=== PATIENT | male | born 1945 | race Caucasian/White ===

== ENCOUNTER 2022-02-10 18:22 | Emergency (ER) | payer MEDICARE, SELFPAY ==
--- NOTE | ~2022-02-10 | XR_ITS ---
EXAMINATION: XR ankle RT min 3V DATE: 02/10/2022 18:43 INDICATION: Right ankle pain and swelling. TECHNIQUE: 4 views of right ankle were obtained. COMPARISON: None. FINDINGS: Bone alignment is normal. No fracture. There is moderate midfoot osteoarthritis. There is a n enthesophyte at plantar aspect of calcaneal tuberosity. There is severely diseased edema in the low er limb. IMPRESSION: 1. Moderate midfoot osteoarthritis. Reviewed, dictated and finalized at location A.
[2022-02-10 18:26] VITALS: BP 148/65; PULSE 90; RESP 20; TEMP 36.7; O2SAT 98
[2022-02-10 19:31] LABS: Basophils Percent Auto 0.3 % (0.2-1.2); Eosinophils Absolute Auto 0.2 K/mm3 (0-0.3); Eosinophils Percent Auto 1.7 % (0-4.4); Hematocrit 37.6 % (42.0-52.0); Hemoglobin 12.3 g/dL (14.0-18.0); Immature Granulocyte Absolute 0.02 K/mm3 (0.00-0.031); Immature Granulocyte Percent A 0.2 % (0-0.5); Lymphocytes Absolute Auto 1.26 K/mm3 (0.9-3.2); Lymphocytes Percent Auto 13.5 % (18.3-44.2); Mean Corpuscular HGB Conc 32.7 g/dl (32-36); Mean Corpuscular Hemoglobin 29.1 pg (26-34); Mean Corpuscular Volume 88.9 fl (80-100); Mean Platelet Volume 10.4 fl (7.4-10.4); Monocytes Absolute Auto 0.6 K/mm3 (0.1-0.6); Monocytes Percent Auto 6.9 % (2.6-8.5); Neutrophils Absolute Auto 7.2 K/mm3 (1.3-6.7); Neutrophils Percent Auto 77.4 % (45.5-73.1); Platelet Count Result 279 k/mm3 (150-375); Red Blood Count 4.23 M/mm3 (4.6-6.20); Red Cell Distribution Width 14.8 % (11.5-14.5); White Blood Count 9.3 K/mm3 (4.5-10.0)
[2022-02-10 19:37] LABS: INR 1.3; Prothrombin Time 15.7 Seconds (11.1-14.7)
[2022-02-10 19:38] LABS: Partial Thromboplastin Time 37.6 SECONDS (22.3-36.8)
[2022-02-10 19:46] LABS: Alanine Aminotransferase 31 U/L (6-50); Alkaline Phosphatase 66 U/L (38-126); Anion Gap 11 mmol/L (8-16); Aspartate Amino Transferase 34 U/L (17-59); Bilirubin,Total 0.7 mg/dL (0.2-1.3); Blood Urea Nitrogen 22 mg/dL (9-20); Calcium 8.9 mg/dL (8.4-10.2); Carbon Dioxide 26 mmol/L (22-30); Chloride 102 mmol/L (98-107); Estimated CRCL calculation 69 ml/min; Estimated Glomerular Filt Rate 59; Glucose 110 mg/dL (65-110); Potassium 3.6 mmol/L (3.4-5.0); Sodium 139 mmol/L (137-145); Uric Acid 8.6 mg/dL (3.5-8.5)
--- NOTE | 2022-02-10 20:52 | ED.GENADULT ---
HPI - General Adult General Chief complaint: Extremity Injury, Lower Stated complaint: R. ankle injury Time Seen by Provider: 02/10/22 19:01 Source: RN notes reviewed History of Present Illness HPI narrative: Patient presents emergency department from home for right ankle pain. Patient states has been having pain over his right medial ankle for approximately 1 week states he had woken up 1 morning and noted that the ankle is sore felt like he had twisted it but states he does not know any injury states that since that time it does hurt him to walk on the ankle and the pain is better at rest but he states he has been able to walk states he does walk with a cane. States he does have a history of blood clots in his legs and he currently is on Eliquis which she has been taking as prescribed denies any fevers or chills denies any numbness or tingling in the extremity states the pain is only over the medial ankle and does not go anywhere else he does note some mild erythema of the leg in that area Related Data Allergies Allergy/AdvReac Type Severity Reaction Status Date / Time lisinopril Allergy Cough Verified 02/10/22 19:06 Review of Systems Review of Systems: Gen.: Denies fevers or chills Respiratory: Denies shortness of breath CV: Denies chest pain GI: Denies abdominal pain nausea, emesis Musculoskeletal: See HPI Neuro: Denies numbness, tingling, weakness or focal weakness Skin: Denies rash Except as documented, all other systems reviewed and negative PMFSH Past Medical History Medical History (Updated 02/10/22 @ 20:56 by Justin Rabago DO) DVT (deep venous thrombosis) Social History Social History (Updated 02/10/22 @ 20:53 by Justin Rabago DO) Smoking status: Never smoker Exam Narrative: APPEARANCE: No acute distress, nontoxic, resting in bed Eyes: EOMI HEENT: Normocephalic, atraumatic, RESPIRATORY: No respiratory distress MUSCULOSKELETAl: Bilateral lower extremities with 3+ edema the right medial ankle is mildly tender to palpation with swelling and mild overlying erythema there is no tenderness of the foot there is no tenderness of the anterior lateral or posterior ankle there is no tenderness of the knee full range of motion of the ankle without pain dorsalis pedis pulse 2+ neurovascular intact NEURO: Awake and alert. Following commands, speech normal, no focal deficits SKIN:: Warm, dry. Normal Color no rash or lesions Course Course Emergency Course: Discussed with patient results of workup and diagnosis. Discussed need for follow-up with primary care, proper use of medication, and reasons to return to the emergency department. Patient understands and agrees to current treatment plan Vital Signs Vital signs: Vital Signs Temperature 98.0 F 02/10/22 18:26 Pulse Rate 90 02/10/22 18:26 Respiratory Rate 20 02/10/22 18:26 Blood Pressure 148/65 H 02/10/22 18:26 Pulse Oximetry 98 02/10/22 18:26 Oxygen Delivery Room Air 02/10/22 18:26 Temperature 98.0 F 02/10/22 18:26 Pulse Rate 90 02/10/22 18:26 Respiratory Rate 20 02/10/22 18:26 Blood Pressure 148/65 H 02/10/22 18:26 Pulse Oximetry 98 02/10/22 18:26 Oxygen Delivery Room Air 02/10/22 18:26 Medical Decision Making [facility] Narrative Medical decision making narrative: Patient with local pain only over the right medial ankle with no known trauma or injury evaluation shows mild overlying erythema with localized tenderness he is able to get up and ambulate in the ED with no difficulty white count was within normal limits uric acid is mildly elevated the patient is on Eliquis and doubt blood clot as the patient is on Eliquis at this time we will treat for gout with Medrol Dosepak as the patient cannot take NSAIDs secondary to Eliquis use as well as places to request antibiotics to cover for cellulitis Vital Signs Vital Signs: Vital Signs Temperature 98.0 F 02/10/22 18:26 Pulse Rate 90 02/10/22 18:26 Respirator
[2022-02-10] MEDS: CEPHALEXIN 500 MG CAPSULE PO (20:57)
== END 2022-02-10 21:23 | disposition home or self-care (01) ==
LOC: ANHED 21:43
PROVIDERS: Emergency Provider Emergency Medicine; PCP Internal Medicine
DX: M19.071 Primary osteoarthritis, right ankle and foot (principal); Z86.718 Personal history of other venous thrombosis and embolism; Z79.01 Long term (current) use of anticoagulants; L03.115 Cellulitis of right lower limb
CPT/HCPCS: 36415; 73610; 80053; 84550; 85025; 85610; 85730; 99283; A9270

== ENCOUNTER 2022-11-04 13:37 | Inpatient (IN) | payer MEDICARE, SELFPAY ==
[2022-11-04] VITALS (10 sets, daily range): BP systolic 140–148; BP diastolic 61–72; PULSE 60–84; RESP 16–24; TEMP 36.1–36.9; O2SAT 96–97; BMI 51.7
--- NOTE | ~2022-11-04 | US_ITS ---
EXAMINATION: US venous doppler LE RT DATE: 11/04/2022 15:02 INDICATION: Right lower limb swelling. TECHNIQUE: Grayscale ultrasound images without and with compression and Doppler ultrasound images of the right lower extremity veins were obtained. COMPARISON: None. FINDINGS: The visualized portions of right common femoral vein, profunda (deep) femoral vein, femoral vein, pos terior tibial veins, and greater saphenous vein outflow are patent. There is nonocclusive thrombus in right popliteal vein. IMPRESSION: 1. Deep vein thrombosis involving right popliteal vein. Reviewed, dictated and finalized at location E.
--- NOTE | 2022-11-04 14:22 | ED.EXTPRO ---
HPI - Extremity Problem General Chief complaint: Extremity Problem,Nontraumatic Stated complaint: foot and ankle pain and swelling Time Seen by Provider: 11/04/22 13:59 History of Present Illness HPI Narrative: 77-year-old male with prior history of DVT in the right lower extremity presented the emergency department for evaluation of worsening right lower extremity swelling. Patient states he does have lower extremity swelling most of the time. Patient states he does have a history of DVT in the right leg and that the right leg is typically more swollen than the left. Patient does take Eliquis since 2020 when he had his DVT. Patient denies any associated chest pain or shortness of breath. Patient was evaluated at [facility], [place] for leg pain approximately 2 weeks ago. Patient states over the course of the last 2 weeks he has had worsening leg swelling. Related Data Home Medications Medication Instructions Recorded Confirmed amoxicillin 875 mg-potassium 1 tablet PO BID 11/04/22 11/04/22 clavulanate 125 mg tablet apixaban 5 mg tablet (Eliquis) 5 mg PO BID 11/04/22 11/04/22 atenolol 25 mg tablet 25 mg PO HS 11/04/22 11/04/22 atorvastatin 40 mg tablet 40 mg PO HS 11/04/22 11/04/22 cholecalciferol (vitamin D3) 50 50 mcg PO DAILY 11/04/22 11/04/22 mcg (2,000 unit) capsule diltiazem HCl 180 mg 360 mg PO DAILY 11/04/22 11/04/22 capsule,extended release 24 hr doxazosin 2 mg tablet 2 mg PO HS 11/04/22 11/04/22 finasteride 5 mg tablet 5 mg PO HS 11/04/22 11/04/22 folic acid 800 mcg tablet 1,000 mcg PO DAILY 11/04/22 11/04/22 furosemide 80 mg tablet 80 mg PO BID 11/04/22 11/04/22 gabapentin 100 mg capsule 200 mg PO HS 11/04/22 11/04/22 isosorbide mononitrate 60 mg 60 mg PO DAILY 11/04/22 11/04/22 tablet,extended release 24 hr losartan 25 mg tablet 25 mg PO DAILY 11/04/22 11/04/22 multivit,Ca,min-iron 8 mg-folic 1 tablet PO DAILY 11/04/22 11/04/22 acid 200 mcg-lycopene 600 mcg tablet (Centrum Men) potassium chloride 20 mEq 20 meq PO HS 11/04/22 11/04/22 tablet,extended release(part/cryst) (Klor-Con M) tramadol 50 mg tablet 50 mg PO Q8H PRN Pain (Scale Score 11/04/22 11/04/22 4-6) Allergies Allergy/AdvReac Type Severity Reaction Status Date / Time lisinopril Allergy Cough Verified 11/04/22 18:27 Review of Systems Review of Systems: All systems reviewed & are unremarkable except as noted in HPI and below PMFSH Past Medical History Medical History (Updated 11/04/22 @ 19:27 by Phong Ardon MD) BPH (benign prostatic hyperplasia) DVT (deep venous thrombosis) HTN (hypertension) with goal to be determined Hyperlipidemia KRISTI treated with BiPAP Pulmonary emboli Retinopathy Surgical History Surgical History (Updated 11/04/22 @ 18:12 by Trey Hopkins MD) History of removal of pigmented skin lesion Total knee replacement status trisha knees Family History Family History (Updated 11/04/22 @ 17:24 by Jami Mc NP) Mother Hypertension Father Epilepsy Sibling Hypertension Social History Social History (Updated 11/04/22 @ 17:26 by Jami Mc NP) Social History: lives with elmira . 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 Smoking packs per day: 1.5 Smoking cigarettes per day: 30.0 Years smoked: 22 Smoking pack-years: 33.00 Smoking status: Former smoker Tobacco type: cigarettes Second hand tobacco smoke exposure: No Smoking end date: 07/01/82 Alcohol intake: never Substance use: never Substance use type: does not use Lack of Transportation: No Lack of Food: Never True Current Housing: I Have Housing Concerned About Future Housing: No Difficulty Paying Gas/Electric Bills: No Difficulty Paying for Meds: No Currently Unemployed: No Education: High School Diploma/GED Difficulty w/ Childcare or Family Care: No Spiritual care concerns: No Exam Narrative: APPEARANCE: Well appearing, no pain, no distress, well-nourished. HEAD: normocephal
[2022-11-04 15:45] LABS: Basophils Absolute Auto 0.1 K/mm3 (0.0-0.1); Basophils Percent Auto 0.6 % (0.2-1.2); Eosinophils Absolute Auto 0.2 K/mm3 (0-0.3); Eosinophils Percent Auto 1.8 % (0-4.4); Hematocrit 34.2 % (42.0-52.0); Immature Granulocyte Absolute 0.03 K/mm3 (0.00-0.031); Immature Granulocyte Percent A 0.3 % (0-0.5); Lymphocytes Absolute Auto 1.08 K/mm3 (0.9-3.2); Lymphocytes Percent Auto 12.3 % (18.3-44.2); Mean Corpuscular HGB Conc 32.2 g/dl (32-36); Mean Corpuscular Hemoglobin 29.1 pg (26-34); Mean Corpuscular Volume 90.5 fl (80-100); Mean Platelet Volume 9.6 fl (7.4-10.4); Monocytes Absolute Auto 0.7 K/mm3 (0.1-0.6); Monocytes Percent Auto 7.9 % (2.6-8.5); Neutrophils Absolute Auto 6.8 K/mm3 (1.3-6.7); Neutrophils Percent Auto 77.1 % (45.5-73.1); Platelet Count Result 278 k/mm3 (150-375); Red Blood Count 3.78 M/mm3 (4.6-6.20); Red Cell Distribution Width 15.1 % (11.5-14.5); White Blood Count 8.8 K/mm3 (4.5-10.0)
[2022-11-04 15:58] LABS: Alanine Aminotransferase 33 U/L (6-50); Albumin Level 3.7 g/dL (3.5-5.1); Alkaline Phosphatase 57 U/L (38-126); Anion Gap 7 mmol/L (8-16); Aspartate Amino Transferase 31 U/L (17-59); Bilirubin,Total 0.6 mg/dL (0.2-1.3); Blood Urea Nitrogen 15 mg/dL (9-20); Calcium 8.2 mg/dL (8.4-10.2); Carbon Dioxide 27 mmol/L (22-30); Chloride 103 mmol/L (98-107); Estimated CRCL calculation 76 ml/min; Estimated Glomerular Filt Rate > 60; Glucose 103 mg/dL (65-110); Potassium 3.7 mmol/L (3.4-5.0); Sodium 137 mmol/L (137-145)
[2022-11-04 16:03] LABS: INR 1.4; Prothrombin Time 17.8 Seconds (11.1-14.7)
[2022-11-04 16:04] LABS: Partial Thromboplastin Time 39.1 SECONDS (22.3-36.8)
--- NOTE | 2022-11-04 17:19 | PM.IMHP ---
H&P: HPI History of Present Illness Date/Time: 11/04/22 17:19 Chief Complaint: foot and ankle swelling Narrative: this is a 77-year-old male patient who has a history of PE and DVT. The patient has been on Eliquis and states that he has been taking that faithfully. The patient came to the emergency room today for complaints of increased swelling to his right foot and lower extremity. The patient has been on Eliquis since 2020. The patient denies any shortness of breath or chest pain. The patient was evaluated at [facility] for leg pain approximately 2 weeks ago. H&H is 11.0 in 34.2. Venous Doppler shows deep vein thrombosis involving right popliteal vein. Patient was started on heparin drip. Oncology has been consulted. Patient is being admitted to inpatient status on the date of service of 11/04/2022. Review of Systems Review of Systems: All systems reviewed & are unremarkable except as noted in HPI and below Constitutional: Constitutional: Reports as per HPI and Reports no additional constitutional complaints Eyes: Eyes: Reports as per HPI and Reports no additional eye complaints ENT: Reports system reviewed and no additional complaints, except as documented and Reports Normal hearing present Cardiovascular: Cardiovascular: Reports no additional cardiovascular complaints Respiratory: Respiratory: Reports no additional respiratory complaints and Reports no additional respiratory complaints Gastrointestinal: Gastrointestinal: Reports as per HPI and Reports no additional gastrointestinal complaints Musculoskeletal: Musculoskeletal: Reports no additional musculoskeletal complaints Integumentary/Breasts: Skin/Breast: Reports system reviewed and no additional complaints, except as docu and Reports as per HPI Neurologic: Reports system reviewed and no additional complaints, except as documented, Reports as per HPI and Reports Normal hearing present Psychiatric: Psychiatric: Reports no additional psychiatric complaints and Reports as per HPI Endocrine: Endocrine: Reports no additional endocrine complaints Hematologic/Lymphatic: Hematologic/Lymphatic: Reports no additional hematologic/lymphatic complaints Allergic/Immunologic: Allergic/Immunologic: Reports no additional allergic/immunologic complaints [facility] Past Medical History Medical History BPH (benign prostatic hyperplasia) DVT (deep venous thrombosis) HTN (hypertension) with goal to be determined Hyperlipidemia KRISTI treated with BiPAP Pulmonary emboli Retinopathy Surgical History Surgical History (Updated 11/04/22 @ 18:12 by Trey Hopkins MD) History of removal of pigmented skin lesion Total knee replacement status trisha knees Family History Family History Mother Hypertension Father Epilepsy Sibling Hypertension Social History Social History (Updated 11/04/22 @ 21:06 by Jami Mc NP) Social History: He lives with earl . he has no biological children but only has 1 step child. he is a retired international accountant code status full code Smoking packs per day: 1.5 Smoking cigarettes per day: 30.0 Years smoked: 22 Smoking pack-years: 33.00 Smoking status: Former smoker Tobacco type: cigarettes Second hand tobacco smoke exposure: No Smoking end date: 07/01/82 Alcohol intake: never Substance use: never Substance use type: does not use Lack of Transportation: No Lack of Food: Never True Current Housing: I Have Housing Concerned About Future Housing: No Difficulty Paying Gas/Electric Bills: No Difficulty Paying for Meds: No Currently Unemployed: No Education: High School Diploma/GED Difficulty w/ Childcare or Family Care: No Spiritual care concerns: No Meds Home Medications and Allergies Home Medications Medication Instructions Recorded Confirmed Type amoxicillin 87
[2022-11-04] MEDS: HEPARIN SODIUM 5,000 UNITS/ML VIAL 8000 UNITS IV PUSH (17:31)
[2022-11-04] MEDS: HEPARIN SOD/D5W 100 UNITS/ML 25,000 UNITS/250 ML BAG 8 UNITS IV CONT (17:32)
--- NOTE | 2022-11-04 18:07 | PDONCCN ---
HPI - Date of Consult Date/Time: 11/04/22 18:07 Requesting Physician: Tito Otto MD Primary Care Provider: Evan Clinton, - Consult Narrative Reason for consult: Right lower extremity DVT Narrative: Raleigh Myers is a 77 year old obese male with history of right lower extremity DVT diagnosed in October 2020 unprovoked but had COVID infection in April 2020. He was started on Eliquis which he claims that he has been taking regularly. He started having some more right foot pain and right knee pain along with swelling about a week ago without any injury and trauma. He denies any recent travel history. He has been compliant with his Eliquis intake. Doppler study showed DVT involving the right popliteal vein. He denies any chest pain and shortness of breath. Patient has a history of heart attack. There is no family history of blood clot. No other complaints. Review of Systems - Review of Systems All systems reviewed & are unremarkable except as noted in [facility] and [facility] Medical History: Medical History (Last Updated 11/04/22 @ 17:22 by Jami Mc NP) BPH (benign prostatic hyperplasia) DVT (deep venous thrombosis) HTN (hypertension) with goal to be determined Hyperlipidemia KRISTI treated with BiPAP Pulmonary emboli Retinopathy Surgical History: Surgical History (Last Updated 11/04/22 @ 17:22 by Jami Mc NP) History of removal of pigmented skin lesion Total knee replacement status trisha knees Family History: Family History (Last Updated 11/04/22 @ 17:24 by Jami Mc NP) Mother Hypertension Father Epilepsy Sibling Hypertension - Social History Social History: Social History (Last Updated 11/04/22 @ 17:26 by Jami Mc NP) Smoking Status: Smoking status: Former smoker Exam - Vital Signs Vital Signs - 24 hr 11/04/22 13:39 Temperature 36.3 C L Pulse Rate 84 Respiratory Rate 22 H Blood Pressure 140/61 Pulse Oximetry 97 Oxygen Delivery Room Air - Exam HEENT: EOMI, PERRLA, mucous membranes moist and pink Neck: supple. No: JVD Lungs: clear to auscultation, normal air movement Heart: no murmurs, gallops, or rubs, regular rhythm, regular rate Abdomen: abdomen soft, non-distended, normal bowel sounds Extremities: edema Integumentary: no abnormalities Neurological: normal speech Psychological: mental status NL, mood NL - Lab Results Laboratory Last Values WBC 8.8 K/mm3 (4.5-10.0) 11/04/22 15:40 RBC 3.78 M/mm3 (4.6-6.20) L 11/04/22 15:40 Hgb 11.0 g/dL (14.0-18.0) L 11/04/22 15:40 Hct 34.2 % (42.0-52.0) L 11/04/22 15:40 MCV 90.5 fl (80-100) 11/04/22 15:40 MCH 29.1 pg (26-34) 11/04/22 15:40 MCHC 32.2 g/dl (32-36) 11/04/22 15:40 RDW 15.1 % (11.5-14.5) H 11/04/22 15:40 Plt Count 278 k/mm3 (150-375) 11/04/22 15:40 MPV 9.6 fl (7.4-10.4) 11/04/22 15:40 Immature Gran % (Auto) 0.3 % (0-0.5) 11/04/22 15:40 Neut % (Auto) 77.1 % (45.5-73.1) H 11/04/22 15:40 Lymph % (Auto) 12.3 % (18.3-44.2) L 11/04/22 15:40 [place] % (Auto) 7.9 % (2.6-8.5) 11/04/22 15:40 Eos % (Auto) 1.8 % (0-4.4) 11/04/22 15:40 Baso % (Auto) 0.6 % (0.2-1.2) 11/04/22 15:40 Lymph # (Auto) 1.08 K/mm3 (0.9-3.2) 11/04/22 15:40 [place] # (Auto) 0.7 K/mm3 (0.1-0.6) H 11/04/22 15:40 Eos # (Auto) 0.2 K/mm3 (0-0.3) 11/04/22 15:40 Baso # (Auto) 0.1 K/mm3 (0.0-0.1) 11/04/22 15:40 Abs Immat Gran (auto) 0.03 K/mm3 (0.00-0.031) 11/04/22 15:40 Absolute Neuts (auto) 6.8 K/mm3 (1.3-6.7) H 11/04/22 15:40 Absolute Nucleated RBC 0.0 K/mm3 (0.0-0.012) 11/04/22 15:40 Nucleated RBC % 0.0 % (0.0-0.2) 11/04/22 15:40 PT 17.8 Seconds (11.1-14.7) H 11/04/22 15:40 INR 1.4 11/04/22 15:40 APTT 39.1 SECONDS (22.3-36.8) H 11/04/22 15:40 Sodium 137 mmol/L (137-145) 11/04/22 15:40 Potassium
--- NOTE | 2022-11-04 18:20 | ADMGEN ---
This patient, Raleigh Myers, was admitted to IMU Room 212-01 on 11/04/22 at 1800. Patient/family oriented to hospital policies and general routines including ID bracelet, bed and alarms, visiting hours, pain management, procedures, bathroom and other care routines, personal items, smoking policy, room service/diet, and visiting hours. Information on how to activate the Rapid Response Team has been discussed. Patient/Family are encouraged to report perceived risks to care and to ask questions if they do not understand what they are told or what they should do.
[2022-11-04] MEDS: atenoloL 25 MG TABLET PO (22:07)
[2022-11-04] MEDS: DOXAZOSIN MESYLATE 2 MG TABLET PO (22:08)
[2022-11-04] MEDS: ATORVASTATIN 40 MG TABLET PO (22:08)
[2022-11-04] MEDS: FUROSEMIDE 80 MG TABLET PO (22:08)
[2022-11-04] MEDS: FINASTERIDE 5 MG TABLET PO (22:08)
[2022-11-04] MEDS: GABAPENTIN 100 MG CAPSULE 200 MG PO (22:08)
[2022-11-04] MEDS: POTASSIUM CHLORIDE 20 MEQ TABLET.ER PO (22:09)
[2022-11-04] MEDS: AMOXICILLIN/CLAVULANATE K 875-125 MG TAB 1 TABLET PO (22:28)
[2022-11-04 23:39] LABS: Basophils Absolute Auto 0.1 K/mm3 (0.0-0.1); Basophils Percent Auto 0.7 % (0.2-1.2); Eosinophils Absolute Auto 0.3 K/mm3 (0-0.3); Hematocrit 35.6 % (42.0-52.0); Hemoglobin 11.7 g/dL (14.0-18.0); Immature Granulocyte Absolute 0.03 K/mm3 (0.00-0.031); Immature Granulocyte Percent A 0.4 % (0-0.5); Lymphocytes Absolute Auto 1.69 K/mm3 (0.9-3.2); Lymphocytes Percent Auto 20.3 % (18.3-44.2); Mean Corpuscular HGB Conc 32.9 g/dl (32-36); Mean Corpuscular Hemoglobin 29.1 pg (26-34); Mean Corpuscular Volume 88.6 fl (80-100); Mean Platelet Volume 9.5 fl (7.4-10.4); Monocytes Absolute Auto 0.7 K/mm3 (0.1-0.6); Monocytes Percent Auto 8.7 % (2.6-8.5); Neutrophils Absolute Auto 5.6 K/mm3 (1.3-6.7); Neutrophils Percent Auto 66.9 % (45.5-73.1); Platelet Count Result 291 k/mm3 (150-375); Red Blood Count 4.02 M/mm3 (4.6-6.20); Red Cell Distribution Width 14.9 % (11.5-14.5); White Blood Count 8.3 K/mm3 (4.5-10.0)
[2022-11-04 23:51] LABS: INR 1.3; Prothrombin Time 16.8 Seconds (11.1-14.7)
[2022-11-04 23:52] LABS: Partial Thromboplastin Time 55.1 SECONDS (22.3-36.8)
[2022-11-05] VITALS (7 sets, daily range): BP systolic 126–136; BP diastolic 62–76; PULSE 65–82; RESP 15–16; TEMP 36.6–36.9; O2SAT 94–98
--- NOTE | 2022-11-05 | ECHO_ITS ---
Patient Info Name: Raleigh Myers Age: 77 years : 1945 Gender: Male Ht: 67 in Wt: 324 lbs BSA: 2.72 m2 HR: 83 bpm BP: 136 / 76 mmHg Technical Quality: Fair Exam Date: 11/05/2022 9:46 AM Exam Location: [facility] Pulmonary Patient Status: Inpatient Admit Date: 11/04/2022 Staff Ordering Physician: Jami Mc NP Robot Programmer: Salima Epps RDCS Attending Provider: Tito Otto MD Referring Physician: Alexandro LEWIS; Exam Type: CA echo dop color flow w con Study Info Indications J81.0 - Acute pulmonary edema Complete two-dimensional, color flow and Doppler transthoracic echocardiogram is performed with contrast to opacify the left ventricle and to improve the deliniation of the left ventricle endocardial borders. Contrast/Agitated Saline Contrast/Ag. Saline: Definity Amount: 4.00 ml Summary 1. Left ventricular chamber dimension is mildly enlarged. 2. Definity contrast administered improved wall motion interpretation. 3. Left ventricular systolic function is normal, estimated at 55-60%. 4. The left ventricular diastolic function is grade I diastolic dysfunction. 5. E/e' 17 is elevated. 6. Left atrial chamber dimension is mildly enlarged. 7. There is mild aortic valve sclerosis. 8. The mitral valve has moderately calcified annulus. Left Ventricle E/e' 17 is elevated. Definity contrast administered improved wall motion interpretation. Left ventricular chamber dimension is mildly enlarged. Left ventricular systolic function is normal, estimated at 55-60%. The left ventricular diastolic function is grade I diastolic dysfunction. Right Ventricle Right ventricular systolic function is normal and with normal TAPSE 3.8 cm. Right ventricular chamber dimension is normal. Left Atria Left atrial chamber dimension is mildly enlarged. Right Atria Right atrial chamber dimension is normal. Aortic Valve The aortic valve is trileaflet. There is mild aortic valve sclerosis. There is no aortic valve stenosis. There is no aortic valve regurgitation. Pulmonic Valve There is no pulmonic regurgitation. Mitral Valve The mitral valve has moderately calcified annulus. There is no mitral valve stenosis. There is no mitral valve regurgitation. Tricuspid Valve There is no tricuspid valve regurgitation. Pericardium/Pleural There is no pericardial effusion. Inferior Vena Cava Normal inferior vena cava with >50% collapse upon inspiration consistent with normal right atrial pressure, 5 mmHg. Aorta The aortic root size at the sinus of Valsalva is not well visualized. Left Ventricular Outflow Tract Name Value Normal LVOT 2D LVOT Diameter 2.17 cm LVOT Doppler LVOT Peak Gradient 3 mmHg LVOT Mean Gradient 2 mmHg LVOT VTI 27.74 cm LVOT VTI/AV VTI Ratio 0.68 LVOT Stroke Volume 102.18 ml LVOT CO 8.07 l/min LVOT CI 2.97 L/min/m2 Pulmonic Valve Name Va
[2022-11-05 00:09] LABS: Iron 43 ug/dL (49-181)
[2022-11-05 00:18] LABS: Percent Iron Saturation 15 % (20-50)
[2022-11-05] MEDS: HEPARIN SODIUM 5,000 UNITS/ML VIAL 4000 UNITS IV PUSH (00:47)
[2022-11-05 01:18] LABS: Folic Acid > 20.0 ng/mL (2.76->20)
[2022-11-05 05:02] LABS: Basophils Absolute Auto 0.1 K/mm3 (0.0-0.1); Basophils Percent Auto 0.8 % (0.2-1.2); Eosinophils Absolute Auto 0.3 K/mm3 (0-0.3); Eosinophils Percent Auto 3.1 % (0-4.4); Hematocrit 34.3 % (42.0-52.0); Hemoglobin 11.2 g/dL (14.0-18.0); Immature Granulocyte Absolute 0.04 K/mm3 (0.00-0.031); Immature Granulocyte Percent A 0.5 % (0-0.5); Lymphocytes Absolute Auto 1.45 K/mm3 (0.9-3.2); Lymphocytes Percent Auto 17.2 % (18.3-44.2); Mean Corpuscular HGB Conc 32.7 g/dl (32-36); Mean Corpuscular Hemoglobin 28.9 pg (26-34); Mean Corpuscular Volume 88.4 fl (80-100); Mean Platelet Volume 9.5 fl (7.4-10.4); Monocytes Absolute Auto 0.8 K/mm3 (0.1-0.6); Monocytes Percent Auto 9.2 % (2.6-8.5); Neutrophils Absolute Auto 5.8 K/mm3 (1.3-6.7); Neutrophils Percent Auto 69.2 % (45.5-73.1); Platelet Count Result 292 k/mm3 (150-375); Red Blood Count 3.88 M/mm3 (4.6-6.20); Red Cell Distribution Width 15.1 % (11.5-14.5); White Blood Count 8.4 K/mm3 (4.5-10.0)
[2022-11-05 05:12] LABS: Lactic Acid Reflex 0.9 mmol/L (0.7-2.0)
[2022-11-05 05:14] LABS: Alanine Aminotransferase 32 U/L (6-50); Albumin Level 3.6 g/dL (3.5-5.1); Alkaline Phosphatase 60 U/L (38-126); Anion Gap 6 mmol/L (8-16); Aspartate Amino Transferase 32 U/L (17-59); Bilirubin,Total 0.7 mg/dL (0.2-1.3); Blood Urea Nitrogen 12 mg/dL (9-20); Calcium 8.3 mg/dL (8.4-10.2); Carbon Dioxide 30 mmol/L (22-30); Chloride 103 mmol/L (98-107); Estimated CRCL calculation 76 ml/min; Estimated Glomerular Filt Rate > 60; Glucose 99 mg/dL (65-110); Magnesium 2.3 mg/dL (1.6-2.3); Potassium 3.8 mmol/L (3.4-5.0); Sodium 139 mmol/L (137-145)
[2022-11-05 07:40] LABS: Partial Thromboplastin Time 50.4 SECONDS (22.3-36.8)
[2022-11-05] MEDS: ISOSORBIDE MONONITRATE 60 MG TAB.ER.24H PO (08:07)
[2022-11-05] MEDS: AMOXICILLIN/CLAVULANATE K 875-125 MG TAB 1 TABLET PO (08:07)
[2022-11-05] MEDS: THERAPEUTIC MULTIVITAMINS/MINERALS TAB (*BKC) 1 TABLET PO (08:08)
[2022-11-05] MEDS: FUROSEMIDE 80 MG TABLET PO (08:08)
[2022-11-05] MEDS: CHOLECALCIFEROL 1,000 UNITS TABLET 2000 UNITS PO (08:08)
[2022-11-05] MEDS: dilTIAZem HCL CD 180 MG CAP.ER.24H 360 MG PO (08:08)
[2022-11-05] MEDS: FOLIC ACID 1 MG TABLET PO (08:08)
[2022-11-05] MEDS: LOSARTAN POTASSIUM 25 MG TABLET PO (08:08)
[2022-11-05] MEDS: HEPARIN SODIUM 5,000 UNITS/ML VIAL 8000 UNITS IV PUSH (08:14)
--- NOTE | 2022-11-05 11:59 | PM.DS ---
DS: Admitting Diagnosis Discharge Date 11/05/22 Admitting Diagnosis Right lower extremity DVT DS: Discharge Diagnosis Discharge Diagnosis (1) Edema of right lower leg: Code(s): R60.0 - Localized edema Status: Acute (2) KRISTI treated with BiPAP: Code(s): G47.33 - Obstructive sleep apnea (adult) (pediatric) Status: Acute (3) DVT (deep venous thrombosis): Code(s): I82.409 - Acute embolism and thrombosis of unspecified deep veins of unspecified lower extremity Status: Acute Assessment and Plan: IMPRESSION: 1.? Deep vein thrombosis involving right popliteal vein. Plan # acute DVT -history of DVT and PE October 2020 on Eliquis -patient appears to have failed Eliquis, Hematology consult recommendation to switch to Xarelto -Rx given for Xarelto # chronic conditions -obstructive sleep apnea: Continue CPAP -chronic pain syndrome: Tramadol, gabapentin -BPH: Doxazosin, finasteride -essential hypertension: Losartan, Cardizem, atenolol, Lasix -hyperlipidemia: Atorvastatin Diet: Heart healthy DVT prophylaxis: Starting Xarelto Code status: Full code Disposition: Home DS: Summary Hospital Course Reason for hospitalization: acute DVT Hospital Course: Patient 77-year-old male with past history of DVT and PE Eliquis who presents to ED with complaints of right lower extremity swelling. Venous duplex showed right popliteal DVT. patient apparently been compliant with Eliquis and now comes in with new DVT while on Eliquis. Dr. Hopkins was consulted with recommendation for heparin drip and discharge with Xarelto. Hematology will arrange for hypercoagulable workup outpatient and repeat ultrasound in 2-3 months. Patient's labs and vitals are stable. He is stable for discharge home. Rx for Xarelto given. Patient to follow-up with PCP Hematology. Patient understands and agrees with plan. Status at Discharge Cognitive/behavioral status at discharge: Baseline Time Spent with Patient Time attestation: Total time spent providing and/or coordinating discharge services: 35 Exam Narrative: - GENERAL: Pleasant obese male no acute distress. Well-nourished. - EYES: EOMI. Anicteric. - LUNGS: Clear to auscultation bilaterally - CARDIOVASCULAR: Regular rate and rhythm. - ABDOMEN: Soft, non-tender and non-distended. - EXTREMITIES: Increased swelling right lower extremity.. Peripheral pulses 2+. - NEUROLOGIC: No focal neurological deficits. CN II-XII grossly intact. - PSYCHIATRIC: Awake, Alert and oriented x 3. Appropriate mood and affect. - SKIN: No rashes or lesions. Warm. - LYMPH: No cervical lymphadenopathy. DS: Data Data Completed and Pending Labs on day of discharge: Labs from last 24 hours 11/05/22 11/05/22 11/04/22 07:15 04:42 23:32 WBC 8.4 8.3 RBC 3.88 L 4.02 L Hgb 11.2 L 11.7 L Hct 34.3 L 35.6 L MCV 88.4 88.6 MCH 28.9 29.1 MCHC 32.7 32.9 RDW 15.1 H 14.9 H Plt Count 292 291 MPV 9.5 9.5 Immature Gran % (Auto) 0.5 0.4 Neut % (Auto) 69.2 66.9 Lymph % (Auto) 17.2 L 20.3 [place] % (Auto) 9.2 H 8.7 H Eos % (Auto) 3.1 3.0 Baso % (Auto) 0.8 0.7 Lymph # (Auto) 1.45 1.69 [place] # (Auto) 0.8 H 0.7 H Eos # (Auto) 0.3 0.3 Baso # (Auto) 0.1 0.1 Abs Immat Gran (auto) 0.04 H 0.03 Absolute Neuts (auto) 5.8 5.6 Absolute Nucleated RBC 0.0 0.0 Nucleated RBC % 0.0 0.0 PT 16.8 H INR 1.3 APTT 50.4 H 55.1 H Sodium 139 Potassium 3.8 Chloride 103 Carbon Dioxide 30 Anion Gap 6 L BUN 12 Creatinine 1.00 Estim Creat Clear Calc 76 Estimated GFR > 60 Glucose 99 Lactic Acid 0.9 Calcium 8.3 L Magnesium 2.3 Iron 43 L TIBC 279 % Saturation 15 L Ferritin 64.40 Total Bilirubin 0.7 AST 32 ALT 32 Alkaline Phosphatase 60 Total Protein 7.0 Albumin 3.6 Vitamin B12 899.0 Folate > 20.0 H TSH (Reflex) 2.190 11/04/22 15:40 WBC 8.8
[2022-11-07] MEDS: PERFLUTREN LIPID MICROSPHERES 1.5 ML VIAL DILUTED TO 10 ML TOTAL VOLUME IV PUSH (10:10)
== END 2022-11-05 13:10 | disposition home or self-care (01) | DRG 300 ==
LOC: ANHED 14:14 → ANHIMU 17:42
PROVIDERS: Internal Medicine; Internal Medicine Hematology & Oncology; Nurse Practitioner; Admitting Provider Family Medicine; Emergency Provider Emergency Medicine; PCP Internal Medicine; Visit Provider Student in an Organized Health Care Education/Training Program
DX: I82.413 Acute embolism and thrombosis of femoral vein, bilateral (principal); Z68.43 Body mass index [BMI] 50.0-59.9, adult; G47.33 Obstructive sleep apnea (adult) (pediatric); G89.4 Chronic pain syndrome; N40.0 Benign prostatic hyperplasia without lower urinary tract symptoms; E78.5 Hyperlipidemia, unspecified; I10 Essential (primary) hypertension; Z96.653 Presence of artificial knee joint, bilateral; H35.00 Unspecified background retinopathy; E66.9 Obesity, unspecified; Z79.01 Long term (current) use of anticoagulants; Z87.891 Personal history of nicotine dependence; Z86.711 Personal history of pulmonary embolism; Z86.16 Personal history of COVID-19
CPT/HCPCS: 36415; 80053; 82607; 82728; 82746; 83540; 83550; 83605; 83735; 84443; 85025; 85610; 85730; 93971; 99285; A9270; C8929; J1644; Q9957